=== PATIENT | male | born 1985 | race American Indian/Alaskan Native ===

== ENCOUNTER 2021-06-19 12:39 | Emergency (ER) | payer OTHER ==
[2021-06-19 13:05] VITALS: BP 128/78
--- NOTE | 2021-06-19 14:01 | Emergency Department Report ---
ED Lower Extremity HPI - General Chief Complaint: Extremity Injury, Lower Stated Complaint: LT KNEE PAIN, Time Seen by Provider: 06/19/21 13:38 Source: patient Mode of arrival: Ambulatory Limitations: No Limitations - History of Present Illness Initial Comments: 36-year-old -[place] male was playing football with his nephews on yesterday and he slid on the ground causing his knee to go in awkward position with resulting in swelling and pain which is worsening when he tries to straighten his leg MD Complaint: knee injury -: Sudden Injury: Knee: Left Place: street/outdoors Severity: moderate Context: fall Associated Symptoms: swelling - Related Data Previous Rx's Medication Instructions Recorded Last Taken Type Ketorolac [Toradol] 10 mg PO Q6H PRN #15 tablet 06/19/21 Unknown Rx traMADoL [Ultram] 50 mg PO Q6HR PRN #20 tablet 06/19/21 Unknown Rx Allergies Allergy/AdvReac Type Severity Reaction Status Date / Time metoclopramide [From Reglan] AdvReac Unknown Verified 06/19/21 13:03 ED Review of Systems ROS: Stated complaint: LT KNEE PAIN, Other details as noted in HPI Comment: All other systems reviewed and negative ED Past Medical Hx - Past Medical History Previous Medical History?: No - Surgical History Past Surgical History?: No - Medications Home Medications: Home Medications Medication Instructions Recorded Confirmed Last Taken Type Ketorolac [Toradol] 10 mg PO Q6H PRN #15 tablet 06/19/21 Unknown Rx traMADoL [Ultram] 50 mg PO Q6HR PRN #20 tablet 06/19/21 Unknown Rx ED Physical Exam - General Limitations: No Limitations (-) General appearance: alert, in no apparent distress - Head Head exam: Present: atraumatic, normocephalic - Eye Eye exam: Present: normal appearance - ENT ENT exam: Present: mucous membranes moist - Neck Neck exam: Present: normal inspection - Respiratory Respiratory exam: Present: normal lung sounds bilaterally. Absent: respiratory distress - Cardiovascular Cardiovascular Exam: Present: regular rate, normal rhythm. Absent: systolic murmur, diastolic murmur, rubs, gallop - GI/Abdominal GI/Abdominal exam: Present: soft, normal bowel sounds - Rectal Rectal exam: Present: deferred - Extremities Exam Extremities exam: Present: normal inspection, tenderness, joint swelling. Absent: calf tenderness - Expanded Lower Extremity Exam Left Hip exam: Present: normal inspection Upper Leg exam: Present: normal inspection Knee exam: Present: tenderness, swelling, pain/laxity with valgus, pain/laxity with varus, full knee extension. Absent: erythema, effusion Lower Leg exam: Present: normal inspection (With discomfort) Neuro vascular tendon exam: Present: no vascular compromise Gait: Positive: antalgic - Back Exam Back exam: Present: normal inspection. Absent: CVA tenderness (R), CVA tenderness (L) - Neurological Exam Neurological exam: Present: alert, oriented X3, CN II-XII intact - Psychiatric Psychiatric exam: Present: normal affect, normal mood - Skin Skin exam: Present: warm, dry, intact, normal color. Absent: rash ED Course Vital Signs 06/19/21 13:00 Temperature 98.3 F Pulse Rate 84 Respiratory 18 Rate Blood Pressure 128/78 O2 Sat by Pulse 98 Oximetry Critical care attestation.: If time is entered above; I have spent that time in minutes in the direct care of this critically ill patient, excluding procedure time. ED Disposition Clinical Impression: Unspecified internal derangement of left knee Disposition: 01 HOME / SELF CARE / HOMELESS Is pt being admited?: No Does the pt Need Aspirin: No Condition: Stable Instructions: Medial Collateral Knee Ligament Sprain, Knee Sprain, Adult Prescriptions: Ketorolac [Toradol] 10 mg PO Q6H PRN #15 tablet PRN Reason: Pain traMADoL [Ultram] 50 mg PO Q6HR PRN #20 tablet PRN Reason: Pain Referrals: NORBERT GARCÍA MD [Staff Physician] - 3-5 Days
--- NOTE | 2021-06-19 14:05 | XRay Report ---
LEFT KNEE 4 VIEW(S) INDICATION / CLINICAL INFORMATION: Left knee pain COMPARISON: None available. FINDINGS: BONES / JOINT(S): No acute fracture or subluxation. No significant arthritis. SOFT TISSUES: Small suprapatellar joint effusion. ADDITIONAL FINDINGS: None. Signer Name: Guilherme Flaherty MD Signed: 06/19/2021 2:01 PM Workstation Name: [id number]
== END 2021-06-19 15:50 | disposition home or self-care (01) ==
LOC: ED 12:39
DX: M23.92 Unspecified internal derangement of left knee (principal); Z79.899 Other long term (current) drug therapy; Z88.8 Allergy status to other drugs, medicaments and biological substances

== ENCOUNTER 2021-12-02 04:24 | Emergency (ER) | payer OTHER ==
[2021-12-02 05:48] VITALS: BP 127/75
[2021-12-02 06:24] LABS: Basophils % (Auto) 0.2 % (0.0-1.8); Eosinophils # (Auto) 0.1 K/mm3 (0.0-0.4); Eosinophils % (Auto) 0.7 % (0.0-4.3); Hematocrit 47.3 % (35.5-45.6); Hemoglobin 15.3 gm/dl (11.8-15.2); Lymphocytes # (Auto) 1.4 K/mm3 (1.2-5.4); Lymphocytes % (Auto) 10.8 % (13.4-35.0); Mean Corpuscular HGB Conc 32 % (32-34); Mean Corpuscular Volume 86 fl (84-94); Monocytes # (Auto) 0.5 K/mm3 (0.0-0.8); Monocytes % (Auto) 3.6 % (0.0-7.3); Platelet Count 299 K/mm3 (140-440); Red Cell Distribution Width 14.3 % (13.2-15.2)
[2021-12-02 06:37] LABS: Bilirubin,Urine NEG (Negative); Blood,Urine SM (Negative); Color,Urine Amber (Yellow)
[2021-12-02] MEDS ORDERED: SODIUM CHLORIDE 0.9% 1000 ML 1,000 ML IV ONE ×2 (06:38→06:39)
[2021-12-02] MEDS ORDERED: ONDANSETRON 4 MG/2 ML INJ IV ONE (06:39)
[2021-12-02 06:44] LABS: Alanine Aminotransferase 19 units/L (7-56); Albumin 4.6 g/dL (3.9-5); BUN/Creatinine Ratio 9; Blood Urea Nitrogen 10 mg/dL (9-20); Calcium 10.1 mg/dL (8.4-10.2); Hemolysis Index 6
[2021-12-02 06:46] LABS: Mucus,Urine 3+ /HPF
[2021-12-02] MEDS ORDERED: DICYCLOMINE 20 MG/2 ML INJ IM ONE (06:50)
[2021-12-02] MEDS ORDERED: DIPHENOXYLATE/ATROPINE TAB PO ONE (06:50)
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
== END 2021-12-02 08:45 | disposition home or self-care (01) ==
LOC: ED 04:24
DX: K52.9 Noninfective gastroenteritis and colitis, unspecified (principal); F32.9 Major depressive disorder, single episode, unspecified; F41.9 Anxiety disorder, unspecified; F17.200 Nicotine dependence, unspecified, uncomplicated; Z79.899 Other long term (current) drug therapy; Z88.8 Allergy status to other drugs, medicaments and biological substances
CPT/HCPCS: 36415; 80053; 81001; 83690; 85025; 96361; 96372; 96374; 99283; J0500; J2405; J7030; Q0162

== ENCOUNTER 2022-01-31 15:19 | Emergency (ER) | payer OTHER ==
[2022-01-31 15:29] VITALS: BP 141/81
[2022-01-31] MEDS ORDERED: ONDANSETRON 4 MG ODT TAB PO ONE ×2 (18:01→21:00)
[2022-01-31] MEDS ORDERED: FAMOTIDINE 20 MG TAB PO ONE ×2 (18:01→21:00)
[2022-01-31] MEDS ORDERED: DICYCLOMINE 20 MG TAB PO ONE ×2 (18:01→21:00)
[2022-01-31 18:45] LABS: Basophils # (Auto) 0.1 K/mm3 (0.0-0.1); Basophils % (Auto) 0.8 % (0.0-1.8); Eosinophils # (Auto) 0.2 K/mm3 (0.0-0.4); Eosinophils % (Auto) 1.5 % (0.0-4.3); Hematocrit 45.1 % (35.5-45.6); Hemoglobin 14.9 gm/dl (11.8-15.2); Lymphocytes # (Auto) 3.6 K/mm3 (1.2-5.4); Lymphocytes % (Auto) 34.4 % (13.4-35.0); Mean Corpuscular HGB Conc 33 % (32-34); Mean Corpuscular Volume 86 fl (84-94); Monocytes # (Auto) 0.7 K/mm3 (0.0-0.8); Monocytes % (Auto) 6.7 % (0.0-7.3); Platelet Count 317 K/mm3 (140-440); Red Blood Count 5.22 M/mm3 (3.65-5.03); Red Cell Distribution Width 14.2 % (13.2-15.2)
[2022-01-31 18:47] LABS: Alanine Aminotransferase 13 units/L (7-56); Albumin 4.7 g/dL (3.9-5); BUN/Creatinine Ratio 9; Blood Urea Nitrogen 7 mg/dL (9-20); Calcium 9.5 mg/dL (8.4-10.2); Hemolysis Index 127
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
== END 2022-02-01 07:00 | disposition left against medical advice (07) ==
LOC: ED 15:19
DX: R10.9 Unspecified abdominal pain (principal); F17.200 Nicotine dependence, unspecified, uncomplicated; Z88.8 Allergy status to other drugs, medicaments and biological substances
CPT/HCPCS: 36415; 80053; 83690; 85025; 99283; J3490; Q0162